=== PATIENT | female | born 1995 | race Caucasian/White ===

== ENCOUNTER → 2017-07-25 | Outpatient (CLI) | payer OTHER ==
[~2017-07-25] MED LIST: CLIN300C99 PO; DEXTROSE 5%(*) 100 ML BAG 100 ML IVPB PRN; ETON68IM SQ; HYDR-385 PO; LIDOCAINE/SOD BICARB 8.4% SYR ID PRN; METR-159 PO; METR-160 PO; NS 0.9% IV ONE; NS(*) 0.9% 100 ML BAG 100 ML IVPB PRN; PRED20TA6 PO; PROM-110 PO; USTEKINUMAB IV ONE
[2017-07-25 08:42] VITALS: BP 120/86
== END ==
LOC: SPU 07-14 07:46
PROVIDERS: ATTEND Nurse Practitioner Family
DX: K50.913 Crohn's disease, unspecified, with fistula (principal)
CPT/HCPCS: 96365; 96366; J3358; J7050

== ENCOUNTER → 2017-07-27 | Outpatient (CLI) | payer OTHER ==
[~2017-07-27] MED LIST changes: -DEXTROSE 5%(*) 100 ML BAG 100 ML IVPB PRN; -LIDOCAINE/SOD BICARB 8.4% SYR ID PRN; -NS 0.9% IV ONE; -NS(*) 0.9% 100 ML BAG 100 ML IVPB PRN; -USTEKINUMAB IV ONE
[2017-07-27 13:24] LABS: PLATELET COUNT, AUTOMATED 216 K/uL (150-450)
== END ==
LOC: LAB 13:07
PROVIDERS: ATTEND Nurse Practitioner Family
DX: K50.913 Crohn's disease, unspecified, with fistula (principal)
CPT/HCPCS: 36415; 82040; 82247; 82310; 82374; 82435; 82565; 82947; 84075; 84132; 84155; 84295; 84450; 84460; 84520; 85025; 86140

== ENCOUNTER → 2017-11-30 | Outpatient (CLI) | payer OTHER ==
[2017-11-30 12:48] LABS: PLATELET COUNT, AUTOMATED 231 K/uL (150-450)
== END ==
LOC: LAB 12:19
PROVIDERS: ATTEND Nurse Practitioner Family
DX: K50.913 Crohn's disease, unspecified, with fistula (principal)
CPT/HCPCS: 36415; 82040; 82247; 82310; 82374; 82435; 82565; 82947; 84075; 84132; 84155; 84295; 84450; 84460; 84520; 85025; 85651; 86140